=== PATIENT | female | born 1975 | race Caucasian/White ===

== ENCOUNTER 2021-04-24 00:20 | Emergency (ER) | payer OTHER ==
[~2021-04-24 00:20] MED LIST: ALDACTONE100 MG PO; ASPIR 8181 MG PO; BASAGLAR K100 UNIT/1 SC; CHANTIX0.5 MG PO; DILANTIN 100 M100 MG PO; DILTIAZEM 24HR180 M1 PO; FENOFIBRATE134 MG PO; FIASP SC; FIORICET TAB1 EA PO; FORTAMET1000 MG PO; GABAPENTIN400 MG PO; GLUCOTROL XL10 MG PO; HUMALOG100 UNIT/1 SQ; K-DUR TAB 20 M20 MEQ PO; LACTULOSE20 GM/30 M PO; LASIX20 MG PO; LASIX40 MG PO; LEVAQUIN750 MG PO; LISINOPRIL-HCT1 EACH PO; LOPRESSOR 50 MG50 MG PO; PHENYTOIN SODI100 MG PO; PROVERA10 MG PO; REGLAN 10 MG TA10 MG PO; RELPAX20 MG PO; REMERON30 MG PO; SPIRONOLACTONE100 MG PO; TEGRETOL200 MG PO; THORAZINE 100100 MG PO; TOPAMAX100 MG PO; VITAMIN D 11000 UNIT PO; ZESTRIL/PRINIVI10 MG GT; ZOCOR 40 MG TAB40 MG PO; ZYRTEC10 MG PO
[2021-04-24 00:59] LABS: HEMOGLOBIN 10.7 gm/dl (12.3-15.3); RED BLOOD COUNT 3.88 M/UL (4.00-5.10); WHITE BLOOD COUNT 6.1 K/UL (4.5-11.0)
[2021-04-24 01:23] LABS: BUN/CREATININE RATIO 15 (0-10)
== END 2021-04-25 00:43 | disposition admitted as inpatient to this hospital (09) ==
LOC: ER1 00:20
PROVIDERS: Family Medicine
DX: G40.909 Epilepsy, unspecified, not intractable, without status epilepticus (principal); D64.9 Anemia, unspecified; E11.65 Type 2 diabetes mellitus with hyperglycemia; D69.6 Thrombocytopenia, unspecified; K74.60 Unspecified cirrhosis of liver; Z20.822 Contact with and (suspected) exposure to COVID-19; E66.01 Morbid (severe) obesity due to excess calories; Z87.19 Personal history of other diseases of the digestive system; Z79.4 Long term (current) use of insulin; Z88.0 Allergy status to penicillin; Z88.2 Allergy status to sulfonamides; Z91.040 Latex allergy status; Z87.891 Personal history of nicotine dependence
CPT/HCPCS: 36600; 70450; 71045; 80053; 82140; 82550; 82553; 82803; 82962; 83605; 83690; 83735; 83874; 83880; 84484; 85025; 87040; 93005; 96374; 96375; 99285; J1940; J1953; J2060; U0002

== ENCOUNTER → 2021-10-06 | Outpatient (CLI) | payer OTHER | LOC: KOH-I 12:20 | DX: S20.219A Contusion of unspecified front wall of thorax, initial encounter (principal); R06.02 Shortness of breath; W19.XXXA Unspecified fall, initial encounter | CPT/HCPCS: 71045; 71111 ==